=== PATIENT | male | born 1995 | race African-American/Black ===

== ENCOUNTER 2016-10-06 15:44 | Emergency (ER) | payer SELFPAY | END 2016-10-06 16:43 | disposition home or self-care (01) | LOC: MADERS 15:44 | DX: M54.5 Low back pain (principal); R03.0 Elevated blood-pressure reading, without diagnosis of hypertension; F17.210 Nicotine dependence, cigarettes, uncomplicated; X50.9XXA Other and unspecified overexertion or strenuous movements or postures, initial encounter | CPT/HCPCS: 99283 ==

== ENCOUNTER 2017-01-23 19:34 | Emergency (ER) | payer SELFPAY | END 2017-01-23 19:50 | disposition home or self-care (01) | LOC: MADERS 19:34 | DX: S46.911A Strain of unspecified muscle, fascia and tendon at shoulder and upper arm level, right arm, initial encounter (principal); F17.210 Nicotine dependence, cigarettes, uncomplicated; X50.0XXA Overexertion from strenuous movement or load, initial encounter | CPT/HCPCS: 99283 ==

== ENCOUNTER 2018-01-04 21:38 | Emergency (ER) | payer SELFPAY ==
[2018-01-04] MEDS ORDERED: AMOXicillin 250 MG CAP ONE (22:08)
[2018-01-04] MEDS ORDERED: Dexamethasone 4 MG TAB ONE (22:08)
[2018-01-04] MEDS ORDERED: HYDROcodone/Acetaminophen 5/325 mg Tablet ONE (22:20)
[2018-01-04] MEDS ORDERED: Ibuprofen 800 MG TAB ONE (22:20)
== END 2018-01-04 22:25 | disposition home or self-care (01) ==
LOC: MADERS 21:38
DX: J02.0 Streptococcal pharyngitis (principal); F17.210 Nicotine dependence, cigarettes, uncomplicated
CPT/HCPCS: 99283; J8540

== ENCOUNTER 2018-01-08 20:22 | Emergency (ER) | payer SELFPAY ==
[~2018-01-08 20:22] MED LIST: Iopamidol 370 76% 100 ML VIAL ONE; Sodium Chloride 0.9% 1,000 ML BAG ONE
[2018-01-08] MEDS ORDERED: Clindamycin/D5W 900 mg/50 ml Premix Bag ONE (20:37)
[2018-01-08] MEDS ORDERED: Ketorolac Tromethamine 30 MG/ML VIAL ONE (20:37)
[2018-01-08] MEDS ORDERED: Dexamethasone 10 MG/ML VIAL ONE (20:37)
[2018-01-08 21:18] LABS: Anion Gap 17 mmol/L (10-20); BUN (Urea Nitrogen) 4 mg/dL (8.9-20.6); Calc. Creatinine Clearance 0 mL/min (70-130); Calcium 9.2 mg/dL (7.8-10.44); Carbon Dioxide 22 mmol/L (22-29); Chloride 104 mmol/L (98-107); Estimated GFR-MDRD Greater than 90; Glucose 141 mg/dL (70-105); Potassium 3.5 mmol/L (3.5-5.1); Sodium 139 mmol/L (136-145)
[2018-01-08 21:30] LABS: #Basophils 0.1 thou/uL (0.0-0.2); #Eosinphils 0.2 thou/uL (0.0-0.7); #Lymphocytes 2.9 thou/uL (1.20-3.40); #Monocytes 0.7 thou/uL (0.11-0.59); #Neutrophils 5.8 thou/uL (1.40-6.50); %Basophils 0.7 % (0.0-1.0); %Eosinophils 2.3 % (0.0-10.0); %Lymphocytes 30.2 % (21.0-51.0); %Monocytes 7.1 % (0.0-10.0); %Neutrophils 59.8 % (42.0-75.0); Hemoglobin 14.7 g/dL (14.0-18.0); Mean Corpuscular HGB CONC 31.9 g/dL (32.0-36.0); Mean Corpuscular Hemoglobin 26.5 pg (27.0-31.0); Mean Corpuscular Volume 82.9 fL (78.0-98.0); Mean Platelet Volume 5.1 fL (7.4-10.4); Platelet Count 348 thou/uL (130-400); RBC Distribution Width 13.1 % (11.5-14.5); Red Blood Cell (RBC) Count 5.54 mill/uL (4.70-6.10); White Blood Cell (WBC) Count 9.7 thou/uL (4.8-10.8)
--- NOTE | 2018-01-08 22:07 | CT ---
CT NECK SOFT TISSUE WITH CONTRAST 01/08/18 INDICATION: 22-year-old male with sore throat for five days and swelling in the right peritonsillar region. COMPARISON: None. IMPRESSION: 1. There is prominence of the palatine tonsils and lingual tonsils suspicious for tonsillitis. N o definite drainable fluid collection is evident. 2. Enlarged level IIa and level III lymph nodes bilaterally, likely reactive. The largest on the right measures 1.8 cm within the right level IIa position. Left level IIa enlarged lymph node measur es 1.7 cm. Clinical follow up recommended. COMMENTS: Intracranial contents appear within normal limits. The parotid, submandibular and thyroid gland appea rs within normal limits. The pre-epiglottic and parapharyngeal space appear within normal limits. No definite drainable fluid collection is evident. The remaining visualized aerodigestive tract appears within normal limits. Lung apices are clear. No acute osseous abnormality is evident. POS: [facility]
== END 2018-01-08 22:34 | disposition home or self-care (01) ==
LOC: MADERS 20:22
DX: J03.90 Acute tonsillitis, unspecified (principal); F17.210 Nicotine dependence, cigarettes, uncomplicated; Z79.899 Other long term (current) drug therapy
CPT/HCPCS: 36415; 70491; 80048; 85025; 96365; 96375; J1100; J1885; J3490; J7050

== ENCOUNTER 2018-12-14 20:36 | Emergency (ER) | payer SELFPAY ==
[2018-12-14 21:21] LABS: Bilirubin Negative (Negative); Blood, Urine Negative (Negative); Clarity Clear (Clear); Glucose, Urine (Dipstick) Negative (Negative); Leukocyte Negative (Negative); Nitrite Negative (Negative); Protein, Urine (Dipstick) Trace mg/dL (Neg-Trace)
[2018-12-18 04:39] LABS: Chlam.trachomatis by PCR,Urine Not Detected (NotDetected)
== END 2018-12-14 22:10 | disposition home or self-care (01) ==
LOC: MADERS 20:36
DX: Z20.2 Contact with and (suspected) exposure to infections with a predominantly sexual mode of transmission (principal); F17.210 Nicotine dependence, cigarettes, uncomplicated
CPT/HCPCS: 81003; 87491; 87591; 99283

== ENCOUNTER 2020-06-16 12:41 | Emergency (ER) | payer SELFPAY ==
[2020-06-17 05:40] LABS: SARS-CoV-2 PCR by NAA DETECTED (NotDetected)
== END 2020-06-16 13:12 | disposition home or self-care (01) ==
LOC: MADERS 12:41
DX: U07.1 COVID-19 (principal); R00.0 Tachycardia, unspecified; F17.210 Nicotine dependence, cigarettes, uncomplicated
CPT/HCPCS: 87635; 99283; U0003; U0005